=== PATIENT | male | born 1970 | race Caucasian/White ===

== ENCOUNTER 2017-09-19 15:51 | Emergency (ER) | payer OTHER ==
[~2017-09-19] VITALS: Ht 185.4 cm; Wt 97.5 kg
[2017-09-19 19:35] VITALS: BP 144/97
[2017-09-19] MEDS ORDERED: OMEPRAZOLE 20 M20 M1 PO (19:42)
== END 2017-09-19 19:45 | disposition home or self-care (01) ==
LOC: ER 15:51
DX: R60.0 Localized edema (principal)